=== PATIENT | female | born 1950 | race Caucasian/White ===

== ENCOUNTER → 2018-08-13 | Outpatient (CLI) | payer OTHER, MEDICARE ==
[~2018-08-13] MED LIST: ACIPHEX 20 MG T20 MG PO; ALBUTEROL0.63 MG/3 IH; ALBUTEROL2.5 MG/31 IH; ALLOPURINOL 10100 M1 PO; AMBIEN; AMBIEN 5 MG TABL5 M1 PO; CALCITRIOL0.25 MCG PO; ELIQUIS5 MG PO; FOLIC ACID PO; FOLIC ACID1 MG PO; IRON PO; IRON325 PO; LEVOTHYROXIN0.125 M1 PO; LISINOPRIL40 MG PO; NORCO 5-325 TA1 EACH PO; PRAVACHOL40 MG PO; REMICADE 1100 MG/VIA; SLOW-MAG64 MG PO; SYNTHROID; TRIAMCINOLONE A80 G2 TOP; TUMS E.S.750 MG PO; TUSSIONEX PENN473 ML PO; TYLENOL325 MG PO; VITAMIN B122500 MCG PO; VITAMIN D1000 UNI1 PO; ZPAK PO
== END ==
LOC: RAD 11:27
DX: R06.00 Dyspnea, unspecified (principal); Z88.5 Allergy status to narcotic agent; Z93.0 Tracheostomy status